=== PATIENT | male | born 1945 | race Two or more races ===

== ENCOUNTER 2022-09-22 05:50 | Day surgery (SDC) | payer OTHER ==
[~2022-09-22] VITALS: Ht 180.3 cm; Wt 70.3 kg
[~2022-09-22 05:50] MED LIST: ATACAND32 MG PO; NIFEDIPINE ER30 M1 PO; ROSUVASTATIN CAL5 MG PO; TAMS0.4C PO; ZIAC 5-6.25 MG1 EACH PO
== END 2022-09-22 16:40 | disposition home or self-care (01) ==
LOC: CIR.AMB 05:50
PROVIDERS: ATTEND Surgery
DX: K40.90 Unilateral inguinal hernia, without obstruction or gangrene, not specified as recurrent (principal); Z20.822 Contact with and (suspected) exposure to COVID-19; I10 Essential (primary) hypertension; E78.5 Hyperlipidemia, unspecified
CPT/HCPCS: 49650; C1781; S2900